=== PATIENT | female | born 1960 | race Caucasian/White ===

== ENCOUNTER 2016-05-21 11:38 | Inpatient (IN) ==
[2016-05-21] MEDS ORDERED: NS 1,000 ML IV ONE (11:59)
[2016-05-21] MEDS ORDERED: ZOFRAN IV ONE ×2 (11:59→20:08)
[2016-05-21 12:07] LABS: MANUAL DIFF NEEDED? NO
[2016-05-21 12:15] LABS: BASO% 0.8 % (0.0-0.8); EOS# 0.03 X1000 (0.0-0.7); EOS% 0.3 % (0.0-10.0); HEMATOCRIT 23.7 % (37.0-47.0); HEMOGLOBIN 7.7 g/dL (12.0-16.0); IMM GRAN# 0.02 X1000 (0.0-0.04); IMM GRAN% 0.2 % (0.0-0.5); LYMPH% 25.5 % (20.5-51.1); MCH 32.5 PG (27-31); MCHC 32.5 g/dL (33-37); MONO# 0.94 X1000 (0.11-0.59); MONO% 8.9 % (1.7-9.3); MPV 10.6 FL (7.4-10.4); NEUT% 64.3 % (42.2-75.2); PLT 340 X1000 (130-400); RBC 2.37 XMIL (4.2-5.4)
[2016-05-21 12:20] LABS: BILIRUBIN URINE NEGATIVE (NEGATIVE); BLOOD URINE NEGATIVE (NEGATIVE); CLARITY SL. CLOUDY (CLEAR); COLOR YELLOW; GLUCOSE URINE NEGATIVE (NEGATIVE); LEUKOCYTES URINE TRACE (NEGATIVE); NITRITE URINE NEGATIVE (NEGATIVE); PROTEIN URINE NEGATIVE (NEGATIVE); SP GRAVITY URINE 1.015; UROBILINOGEN URINE NORMAL
[2016-05-21 12:28] LABS: AMYLASE 34 U/L (20-200); LIPASE 24 U/L (13-60)
[2016-05-21 12:31] LABS: AGAP 17; ALBUMIN 3.4 g/dL (3.5-5.0); ALKALINE PHOSPHATASE 28 U/L (32-104); BUN 44 mg/dL (8-22); CALCIUM 8.5 mg/dL (8.8-10.2); CHLORIDE 103 mmol/L (98-107); COSMO 286; GOT 27 U/L (10-30); GPT 21 U/L (10-36); POTASSIUM 3.9 mmol/L (3.5-5.1); SODIUM 136 mmol/L (136-145); TCO2 17 mmol/L (25-35); TOTAL PROTEIN 5.4 g/dL (6.3-8.3)
[2016-05-21 12:33] LABS: URINE CULTURE PL NEEDED? YES; URINE EPITHELIAL CELLS >10 /HPF (<10); URINE SOURCE CLEAN CATCH
[2016-05-21] MEDS ORDERED: PROTONIX IV ONE (12:40)
[2016-05-21] MEDS ORDERED: SODIUM CHLORIDE 0.9% INJ ONE ×2 (12:40→21:30)
[2016-05-21 12:51] LABS: OCCULT BLOOD 1 POSITIVE (NEGATIVE)
--- NOTE | 2016-05-21 13:15 | PROVIDER DOCUMENTATION ---
This chart was entered by Fredrick Anne Scribe, acting as scribe for Nallely Castañeda PA. HPI-General Adult - General Chief Complaint: Nausea/Vomiting Stated Complaint: NAUSEA Time Seen by Provider: 05/21/16 11:58 Source: patient Allergies/Adverse Reactions: Patient Allergies Allergy/AdvReac Type Severity Reaction Status Date / Time codeine AdvReac HIVES Verified 05/21/16 11:50 Home Medications: Home Medication List Medication Instructions Recorded Confirmed Last Taken Type NK [No Home Medications] 05/21/16 05/21/16 Unknown History - History of Present Illness -Gen Adult Nature of Presenting Problems: Pt is a 56 yof that presents to er with cc of nausea and vomiting x 3 days. Associated dizziness and lightheaded upon standing. Went to [facility] was given 4mg IM Zofran sent to er was unable to draw blood. Recent travel to [place] last week No changes in bowel habits. Been taking Alkazeler with no relief. Denies abd pain,f,c. Quality of Pain: reports: none Severity: reports: moderate Onset/Duration: reports: 3 days ago Timing: reports: still present Similar Symptoms Previously?: No Recently seen or treated by another doctor?: No Review of Systems - Adult - REVIEW OF SYSTEMS - ADULT Constitutional: denies: chills, fever, fatique Eyes: reports: no symptoms reported Ears, Nose, Mouth & Throat: denies: ear pain, sinus problem, throat pain Cardiovascular: reports: no symptoms reported Respiratory: denies: cough, shortness of breath, wheezing Gastrointestinal: reports: nausea, vomiting. denies: abdominal pain, diarrhea, difficulty swallowing, frequent heartburn, poor appetite Genitourinary: denies: dysuria, discharge, frequent UTI's, hematuria Musculoskeletal: reports: no symptoms reported Integumentary: reports: no symptoms reported Neurological: reports: dizziness/vertigo. denies: headache/migraines, loss of balance, numbness, paresthesia Psychiatric: reports: no symptoms reported Endocrine: reports: no symptoms reported Hematologic/Lymphatic: reports: no symptoms reported Allergic/Immunologic: reports: no symptoms reported All Other Systems: Reviewed and Negative Past History - Adult - PAST MEDICAL HISTORY-ADULT Review of Records: reports: Nursing Assessment Review, Medications Reviewed Major Childhood Illnesses: reports: denies history - PRIOR SURGERIES/PROCEDURES Surgical/Procedure History: reports: BTL - IMMUNIZATION STATUS Childhood Immunizations: See Nurse Assessment Flu Vaccine: See Nurse Assessment - FAMILY HISTORY Family History: reviewed, not pertinent - SOCIAL HISTORY Smoking: denies Substance Use: none/never Physical Exam-General - PHYSICAL EXAM-ADULT Initial Vital Signs Reviewed: Yes - CONSTITUTIONAL General Appearance: alert, no apparent distress. negative: appears well - EYES Eyes: PERRL/EOMI - HEAD, EARS, NOSE, MOUTH & THROAT HENMT: moist mucous membranes, normal ENT inspection, TMs normal, pharynx normal - NECK Neck: non-tender, full range of motion, supple, normal inspection - RESPIRATORY Respiratory: chest non-tender, lungs clear, normal breath sounds, no pleuratic chest pain, no respiratory distress, no accessory muscle use - CARDIOVASCULAR Cardiovascular: tachycardia - GASTROINTESTINAL (ABDOMEN) Abdominal Exam: soft, no organomegaly, no pulsatile mass, tenderness (ttp epi) - MUSCULOSKELETAL Back Exam: normal inspection, no CVA tenderness, no vertebral tenderness Extremity: normal range of motion, non-tender - SKIN Integumentary: normal turgor, warm/dry, pallor - PSYCHIATRIC Psych/Mental Status: normal mood/affect, normal thought content, normal thought process, oriented x 3 Progress - PLAN OF CARE/RESULTS Progress/Plan/Lab Results: Vital Signs - 8 hr 05/21/16 11:44 05/21/16 12:10 Temperature 97.8 F Pulse Rate 124 H Pulse Rate [Sitting] 111 H Pulse Rate [Standing] 121 H Pulse Rate [Supine] 105 H Respiratory Rate 18 Blood Pressure 107/71 Blood Pressure [Sitting] 95/61 Blood Pressure [Standing] 94/54 Blood Pressure [Supine] 107/66 O2 Sat by Pulse Oximetry 100 Laboratory Results - last 24 hr 05/21/16 05/21/16 12:02 12:02 WBC 10.57 RBC 2.37 L Hgb 7.7 L Hct 23.7 L MCV 100.0 H MCH 32.5 H MCHC 32.5 L RDW Std Deviation 12.5 Plt Count 340 MPV 10.6 H Immature Gran % (Auto) 0.2 Neut % (Auto) 64.3 Lymph % (Auto) 25.5 Wake % (Auto) 8.9 Eos % (Auto) 0.3 Baso % (Auto) 0.8 Immature Gran # (Auto) 0.02 Neut # (Auto) 6.80 H Lymph # (Auto) 2.70 Wake # (Auto) 0.94 H Eos # (Auto) 0.03 Baso # (Auto) 0.08 Urine Color YELLOW Urine Clarity SL. CLOUDY A Urine pH 6.0 Ur Specific [place] 1.015 Urine Protein NEGATIVE Urine Ketones NEGATIVE Urine Blood NEGATIVE Urine Nitrite NEGATIVE Urine Bilirubin NEGATIVE Urine Urobilinogen NORMAL Urine WBC TRACE A Urine Glucose NEGATIVE Orders Category Date Time Status ED: Orthostatic Vital Signs (E as directed Care 05/21/16 11:51 Active AMYLASE [CHEM] Stat Lab 05/21/16 12:02 Received CBC WITH DIFF [HEME] Stat Lab 05/21/16 12:02 Completed COMPREHENSIVE METABOLIC PANEL [CHEM] Stat Lab 05/21/16 12:02 Received LIPASE [CHEM] Stat Lab 05/21/16 12:[address] W/POSS RFLX CULT [URINALYSIS] Stat Lab 05/21/16 12:02 Results 0.9% Sodium Chloride Inj [Ns] 1,000 ml Med 05/21/16 11:59 Active IV 999 mls/hr Ondansetron [Zofran] Med 05/21/16 11:59 Discontinued 4 mg IV NOW ONE Result Diagrams: 05/21/16 12:02 05/21/16 12:02 - CONSULTS/PCP/HOSPITALIST Notification #1 *Consult/PCP/Hospitalist*: Dr. Biggs, hospitalist Time Discussed: 13:52 Reason/Comments: GI bleed Consult Disposition: Admit (Will come evaluate and transfer to for GI consultation) Departure - Departure Time of Disposition Decision: 13:52 DIAGNOSIS: GI bleed Qualifiers: GI bleed type/associated pathology: unspecified gastrointestinal hemorrhage type Qualified Code(s): K92.2 - Gastrointestinal hemorrhage, unspecified Disposition: ADMITTED INPATIENT 09 Certified Medical Emergency: Emergent Condition: Stable Referrals and Follow-Ups: None,PCP [Primary Care Provider] - Attestation - Physician/ ELMER Attestation Patient care was provided by Advanced Practice Provider:: Yes Advanced Practice Provider:: Nallely Castañeda Advanced Practice Provider documentation review:: The Mid-level provider documentation, treatment plan and medical decision making was reviewed by the physician who agrees with all treatment and medical decision making by the MLP. This chart was documented by the indicated scribe, (Fredrick Anne, Whit) and accurately reflects the services I performed and decisions made by me, Nallely Castañeda PA, as attested by the provider's signature.
[2016-05-21] MEDS ORDERED: NS 1,000 ML ONE ×2 (14:28→17:47)
--- NOTE | 2016-05-21 17:13 | HISTORY AND PHYSICAL ---
PRIMARY CARE PHYSICIAN: She has no primary care physician. CHIEF COMPLAINT: Nausea, vomiting x3 days. HISTORY OF PRESENT ILLNESS: This is a 56-year-old, female, who denies any prior health history. She presented to the emergency room complaining of nausea, vomiting x3 days with associated dizziness and lightheadedness upon standing and walking. She went to [facility], was given Zofran IM. They were unable to draw labs. Therefore, she was sent to the emergency room for further evaluation. She does report travel to [facility] last week. She states she had no change in bowel habits. She did not eat foods that were not eaten by other people and no one in her group has become sick. She denied any diarrhea, any black or bloody vomitus or black or bloody stools. Orthostatic vital signs were obtained with a lying blood pressure of 107/66, and heart rate of 105. Standing 94/54 with a heart rate of 121. She was given a L of saline along with 4 of Zofran and Protonix. She is being admitted for further evaluation and treatment. PAST MEDICAL HISTORY: Denies. PAST SURGICAL HISTORY: Tubal ligation. SOCIAL HISTORY: She denies alcohol, tobacco, or illicit drug use. ALLERGIES: Codeine, which causes hives. HOME MEDICATIONS: None. REVIEW OF SYSTEMS: A 14 point review of systems is discussed with patient with pertinent positives stated in HPI. She denied chest pain, palpitations, syncope, black or bloody vomitus, black or bloody stools. Fever, chills, recent weight loss, weight gain, shortness of breath, cough. PHYSICAL EXAMINATION: GENERAL: This is a 56-year-old female who is sitting up in the bed with no distress. VITAL SIGNS: Blood pressure is 107/61, heart rate of 91, respirations are 18, temperature is 97.8 oral with room air saturations 100%. HEENT: Head is normocephalic, atraumatic. Pupils equal, round, react to light. EOMs are intact. Sclerae anicteric. Mucous membranes are dry. NECK: Supple with trachea midline. CARDIOVASCULAR: Regular rate and rhythm. S1, S2 appreciated. PULMONARY: Breath sounds are clear with no increased work of breathing noted. Chest does rise and fall symmetrically with respiration. GASTROINTESTINAL: Abdomen is soft with some epigastric tenderness, nondistended with bowel sounds in all 4 quadrants. MUSCULOSKELETAL: Good range of motion of joints. NEUROLOGIC: She is alert and oriented x3. EXTREMITIES: No clubbing, cyanosis, or edema. Calves are nontender. Pulses are palpable x4. DIAGNOSTICS: WBC is 10.5, with a hemoglobin of 7.7, hematocrit 23.7, and platelets of 340. Sodium is 136, potassium 3.9, BUN 44, creatinine 0.5 with a glucose of 157. Alkaline phosphatase is 28, AST 27, ALT 21 with amylase 34, lipase 24. She has stool for occult blood is positive. Urinalysis reveals 10-20 microscopic white blood cells and 1+ bacteria with greater than 10 epithelial cells. ASSESSMENT: 1. Gastrointestinal bleed. 2. Anemia. 3. Nausea, vomiting. 4. Dehydration. PLAN: The patient will be admitted to the hospital. We will continue with IV hydration with Zofran for nausea. We will continue with Protonix. She will remain n.p.o. at present. We will trend labs. Further treatments pending hospital course. Dictated by EZEQUIEL Quinn for Hardik Biggs MD cc: EZEQUIEL Quinn MD
[2016-05-21] MEDS: OFIRMEV 1000 MG/ISOTONIC SOLN 1,000 MG/100 ML BOTTLE IV SCH ×2 (17:25→23:13)
[2016-05-21] MEDS ORDERED: NS 1,000 ML IV SCH (17:39)
[2016-05-21] MEDS ORDERED: ZOFRAN ODT PO ONE (20:04)
[2016-05-21] MEDS ORDERED: ZOFRAN ODT ONE (20:06)
[2016-05-21] MEDS ORDERED: ZOFRAN ONE (20:09)
[2016-05-21] MEDS: ZOFRAN IV PRN (23:13)
[2016-05-21] MEDS: PROTONIX IV SCH (23:13)
[2016-05-21] MEDS: NS 1,000 ML IV SCH (23:14)
[2016-05-22] MEDS ORDERED: PHENERGAN IV ONE (02:50)
[2016-05-22] MEDS ORDERED: DEMEROL IV PRN (02:50)
[2016-05-22] MEDS ORDERED: SODIUM CHLORIDE 0.9% INJ ONE (02:50)
[2016-05-22] MEDS: OFIRMEV 1000 MG/ISOTONIC SOLN 1,000 MG/100 ML BOTTLE IV SCH ×4 (04:45→23:43)
[2016-05-22] MEDS: NS 1,000 ML IV SCH ×2 (04:45→14:22)
[2016-05-22] MEDS ORDERED: SODIUM CHLORIDE 0.9% 10 ML ONE ×2 (07:00→14:15)
[2016-05-22 07:49] LABS: AGAP 4; ALBUMIN 2.8 g/dL (3.5-5.0); ALKALINE PHOSPHATASE 22 U/L (32-104); BUN 20 mg/dL (8-22); CALCIUM 7.6 mg/dL (8.8-10.2); CHLORIDE 110 mmol/L (98-107); COSMO 289; GOT 19 U/L (10-30); GPT 16 U/L (10-36); POTASSIUM 3.5 mmol/L (3.5-5.1); SODIUM 144 mmol/L (136-145); TCO2 30 mmol/L (25-35); TOTAL BILIRUBIN 0.27 mg/dL (0.20-1.00); TOTAL PROTEIN 4.3 g/dL (6.3-8.3)
[2016-05-22] MEDS: PROTONIX IV SCH ×2 (09:47→20:42)
[2016-05-22] MEDS ORDERED: ZOFRAN IV PRN (11:58)
[2016-05-22] MEDS: DILAUDID IV PRN ×2 (12:22→20:03)
[2016-05-22] MEDS: ZOFRAN IV PRN (12:23)
[2016-05-22 12:39] LABS: HEMATOCRIT 17.4 % (37.0-47.0); HEMOGLOBIN 5.5 g/dL (12.0-16.0); MCH 31.8 PG (27-31); MCHC 31.6 g/dL (33-37); MCV 100.6 FL (81-99); MPV 9.6 FL (7.4-10.4); RBC 1.73 XMIL (4.2-5.4)
--- NOTE | 2016-05-22 12:46 | PROGRESS NOTE ---
DATE: 05/23/2015 SUBJECTIVE: Today, Ms. Soto refers to be doing relatively fine. Complained of headaches. I spent almost over an hour in her room. She had multiple complaints and wanted to change her room. She is mad that she was kept for almost 12 hours in [place] when we knew she needed to come here and, since she has been here, she has not seen any physician, and the complaints just goes on and on. She also says she is having some headaches which she thinks is because we her be fasting for 2 days without any food. She did also made it clear that if an EGD or nothing is done to find out the source of her bleed, she would leave AMA because she has a her daughter's prom to go tomorrow. OBJECTIVE: Vital Signs: Blood pressure is 100/46, pulse is 90, respiration is 18, temperature is 98.1 degrees. General: Ms Soto is a 56-year-old female. She was in bed and doesn't seems to be in any distress. Mucosa is pale and moist. Anicteric. Acyanotic. Neck is supple. Chest was clear. Cardiovascular: Regular rate and rhythm. Abdomen was soft and nontender. Extremities: No pedal edema. SQUILGEER: The patient was alert and oriented x4. LABORATORY DATA: There is no CBC today. Hemoglobin was 7.7 yesterday at [place] at 1202. Chemistry this morning is unremarkable. The patient is currently on 1. Pantoprazole 40 mg IV b.i.d. 2. Zofran. 3. Normal saline at 125. The patient's FOBT is positive. ASSESSMENT: 1. Symptomatic anemia, likely secondary to gastrointestinal bleed. 2. Nausea and vomiting. This has resolved. 3. Headaches, unclear etiology. The patient assumes that because she has been hungry, and she has been starving for the past 48 hours. 4. 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 Normally follows up in [place] with a neurologist over there. 5. Multiple social complaint. I think she is complaining about having been waiting for long. I tried my best to address each one of them and let her know that our priority is to first and foremost to make sure that she is safe and secondly to figure out what she has, and that Dr. Rubalcava has already been notified. Hopefully, we can get an EGD and colonoscopy done today. cc: Jose Bose MD [facility]ALTH SYSTEMTiff
[2016-05-22] MEDS ORDERED: MIRALAX PO ONE (17:47)
[2016-05-22] MEDS ORDERED: DULCOLAX PO ONE ×2 (17:47→22:00)
[2016-05-22] MEDS ORDERED: ULTRAM PO PRN (17:51)
--- NOTE | 2016-05-22 18:20 | CONSULTATION ---
DATE OF CONSULTATION: 05/22/2016 REFERRING PHYSICIAN: Dr. Jose Bose M.D. PRIMARY CARE PHYSICIAN: The patient was previously followed at [facility] but was referred to [facility] by [facility]. CHIEF COMPLAINT: 1. Nausea with vomiting for 3 days. 2. Hemoglobin of 5.5. 3. Heme-positive stools. HISTORY OF PRESENT ILLNESS: The patient is a 56-year-old, white female, who states that she has been relatively healthy. She recently returned from a vacation in [facility] in [place]. Approximately 3 days ago, she developed nausea with vomiting, lightheadedness and dizziness upon standing and walking. She attempted to schedule an appointment at [facility] but was unable to do so in the near future. She presented to [facility] where she was treated with IM Zofran. Because she was so dehydrated, they were unable to establish IV access. Because of her dehydration and her pale appearance, she was referred to [facility] for evaluation. She presented to [facility] where she was initially found to have a hemoglobin of 7.7 with hematocrit of 23.7. Overnight, she received IV fluids. Her stool was guaiac positive but we are unaware of the color. This morning, her hemoglobin dropped to 5.5 with a hematocrit of 17.4 after hydration. She denies hematemesis, melena, blood in her stool or blood on the tissue when she wipes. Her mother notes that the patient begin a vegetarian diet approximately 4-6 weeks ago because she was developing joint pain that she attributed to arthritis. Otherwise, she states that she has been relatively healthy. 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 She is receiving ongoing monitoring at [facility] in the Neurosurgery Clinic. PAST SURGICAL HISTORY: Tubal ligation. SOCIAL HISTORY: Negative for alcohol, tobacco or recreational drug use. MEDICATION ALLERGIES: Codeine. HOME MEDICATIONS: None. REVIEW OF SYSTEMS: Remarkable for nausea with resolution of the vomiting since admission. She notes a vague epigastric discomfort. She has never had a screening colonoscopy. FAMILY HISTORY: Remarkable for prostate cancer in the maternal grandfather. There is a strong history of coronary artery disease. There is no family history of colon cancer , esophageal cancer, gastric cancer or throat cancer. On exam, this is a white female in no acute distress. Her blood pressure is 104 /46, pulse of 86, respiration 18, temperature of 98.9 degrees.HEENT: Remarkable in that her sclerae are anicteric. Her conjunctivae are pale. Oropharyngeal mucosa membranes are moist. Pulmonary : Lungs are clear to auscultation with normal expiratory effort. Cardiovascular Examination: Reveals regular rate and rhythm with no gallops, murmurs, or rubs. Abdominal Exam: Reveals normoactive bowel sounds. The abdomen is soft with mild epigastric tenderness on deep palpation. There is no rebound or guarding. Rectal exam: Was deferred as she has guaiac-positive stools. Extremities: Bilaterally are negative for cyanosis, clubbing, or edema. OBJECTIVE DATA: Her hemoglobin is 5.5 with hematocrit of 17.4 and a white count of 4.66. She has 267,000 platelets. Sodium is 144, potassium 3.5, chloride 110, CO2 of 30, BUN 20, with a creatinine 0.5. Glucose is 90. Calcium is 7.6, total bilirubin 0.27, AST 19, ALT 16, alkaline phosphatase 22, total protein 4.3, and albumin of 2.8. IMPRESSION: 1. Severe anemia. 2. Heme-positive stools. 3. Nausea with vomiting. 4. Protein calorie malnutrition. RECOMMENDATION: 1. To further evaluate the patient's anemia, nausea with vomiting and epigastric pain, I will plan to perform an EGD in the morning after she has received blood transfusion and has been fully resuscitated. 2. The patient has an unexplained protein calorie malnutrition. Therefore, I recommend that she also undergo a colonoscopy in the morning for further evaluation and to rule out a malignancy. 3. Please transfuse as you are doing. She will need careful monitoring of her hemoglobin and hematocrit overnight. She is currently scheduled to receive 2 units of blood. She may require an additional amount. 4. Continue Protonix 40 mg IV q.12 hours as you are doing. 5. The patient reports a headache on review of systems. I will add Ultram that may be given now and q.6 hours as needed. She is somewhat concerned about taking either Dilaudid or morphine as she does not routinely take pain medications. 6. I will instruct the nurses that she may have 1 or the other but not all of the above pain medication. It is will be important to avoid over-sedation. She has agreed to sign the consent prior to receiving any sedation. Consent was discussed and questions answered. 7. Additional recommendations to follow based on her clinical course and review of her endoscopic findings. cc: MD Jose Craft MD MTDD
[2016-05-23] MEDS: NS 1,000 ML IV SCH ×2 (02:27→12:36)
[2016-05-23 02:32] LABS: MANUAL DIFF NEEDED? NO
[2016-05-23 02:40] LABS: BASO% 0.5 % (0.0-0.8); EOS# 0.12 X1000 (0.0-0.7); HEMOGLOBIN 7.9 g/dL (12.0-16.0); LYMPH# 2.06 X1000 (1.2-3.4); LYMPH% 34.6 % (20.5-51.1); MCH 31.5 PG (27-31); MCHC 32.9 g/dL (33-37); MCV 95.6 FL (81-99); MONO# 0.72 X1000 (0.11-0.59); MONO% 12.1 % (1.7-9.3); MPV 9.5 FL (7.4-10.4); NEUT% 50.8 % (42.2-75.2); PLT 236 X1000 (130-400); RBC 2.51 XMIL (4.2-5.4)
[2016-05-23] MEDS ORDERED: FLEET ENEMA PR ONE (06:24)
[2016-05-23 07:32] LABS: MANUAL DIFF NEEDED? NO
[2016-05-23] MEDS ORDERED: EPINEPHRINE SYRINGE ONE (07:43)
[2016-05-23 07:58] LABS: BASO% 0.6 % (0.0-0.8); EOS# 0.13 X1000 (0.0-0.7); EOS% 2.1 % (0.0-10.0); HEMATOCRIT 30.9 % (37.0-47.0); HEMOGLOBIN 10.4 g/dL (12.0-16.0); IMM GRAN# 0.02 X1000 (0.0-0.04); IMM GRAN% 0.3 % (0.0-0.5); LYMPH# 2.13 X1000 (1.2-3.4); LYMPH% 33.8 % (20.5-51.1); MCH 30.9 PG (27-31); MCHC 33.7 g/dL (33-37); MCV 91.7 FL (81-99); MONO# 0.71 X1000 (0.11-0.59); MONO% 11.3 % (1.7-9.3); MPV 10.2 FL (7.4-10.4); NEUT% 51.9 % (42.2-75.2); PLT 277 X1000 (130-400); RBC 3.37 XMIL (4.2-5.4)
[2016-05-23 08:07] LABS: AGAP 13; ALBUMIN 3.7 g/dL (3.5-5.0); ALKALINE PHOSPHATASE 30 U/L (32-104); BUN 7 mg/dL (8-22); CALCIUM 8.5 mg/dL (8.8-10.2); CHLORIDE 101 mmol/L (98-107); COSMO 272; GOT 30 U/L (10-30); GPT 24 U/L (10-36); POTASSIUM 3.6 mmol/L (3.5-5.1); SODIUM 137 mmol/L (136-145); TCO2 23 mmol/L (25-35); TOTAL BILIRUBIN 0.71 mg/dL (0.20-1.00); TOTAL PROTEIN 5.8 g/dL (6.3-8.3)
[2016-05-23] MEDS ORDERED: PRILOSEC PO SCH (10:10)
[2016-05-23] MEDS ORDERED: CARAFATE LIQUID PO SCH (10:10)
[2016-05-23] MEDS ORDERED: FENTANYL ONE (10:26)
[2016-05-23] MEDS ORDERED: DIPRIVAN 1% 500 MG/50 ML BOTTLE ONE (10:27)
[2016-05-23] MEDS ORDERED: VERSED ONE (10:27)
--- NOTE | 2016-05-23 11:55 | PROGRESS NOTE ---
DATE: 05/23/2016 SUBJECTIVE: Today, Ms. Soto refers to be doing a whole lot better. She actually seems like a different person. She is more polite, more delightful, seems happier, and was full of smiles today. She actually apologized for her attitude yesterday. She just came from the EGD and colonoscopy. She denies any orthostatic symptoms. She denies any vomiting. No melena. OBJECTIVE: Vital Signs: Blood pressure is 112/62, pulse is 74, respirations 20, temperature 97.9 degrees. General: Ms Soto is a 56-year-old female. She is in bed, does not seems to be in any distress. Mucosa is pink and moist. Anicteric. Acyanotic. Neck is supple. Chest was clear. Cardiovascular: Regular rate and rhythm. Abdomen is soft, nontender. Extremities: No pedal edema. LABORATORY DATA: WBC is 6.31, hemoglobin is 10.4, platelet count of 277,000. Chemistries reviewed and completely unremarkable. We are still pending the official report on the EGD. My understanding is that she had 3 gastric ulcers, some duodenitis, and some polyps on the colonoscopy. ASSESSMENT: 1. Symptomatic anemia due to gastrointestinal bleed. 2. Gastrointestinal bleed due to peptic ulcer disease. 3. History of nonsteroidal anti-inflammatory drugs, chronic use. 4. History of brain stem tumor. On strict observation from a neurologist in [place]. 5. Headaches, resolved. In general, Ms. Soto seems to be doing a whole lot better. She got 3 PRBC transfused. Hemoglobin and hematocrit has remarkably improved. She has just done her studies. Dr. Rubalcava plans to keep her on b.i.d. Protonix and Carafate, and she will follow her up in her clinic. There is a CBC for this afternoon. If that comes back to be normal or stable, we will be able to discharge her, and she will follow up with Dr. Rubalcava. cc: Jose Bose MD
[2016-05-23 12:01] VITALS: BP 133/50
[2016-05-23] MEDS: OFIRMEV 1000 MG/ISOTONIC SOLN 1,000 MG/100 ML BOTTLE IV SCH (12:36)
[2016-05-23 12:39] LABS: HEMOGLOBIN 10.7 g/dL (12.0-16.0); MCH 31.3 PG (27-31); MCHC 33.4 g/dL (33-37); MCV 93.6 FL (81-99); MPV 10.1 FL (7.4-10.4); RBC 3.42 XMIL (4.2-5.4)
--- NOTE | 2016-05-23 16:12 | OPERATIVE NOTE ---
DATE OF PROCEDURE: 05/23/2016. REFERRING PHYSICIAN: Jose Bose M.D. INDICATIONS FOR CONSULTATION: 1. Hemoglobin of 5.5. 2. Protein calorie malnutrition. 3. Constipation. PROCEDURE PERFORMED: 1. Colonoscopy with polypectomy. 2. Colonoscopy with biopsy. CONSENT: Informed consent was obtained from the patient prior to the procedure. The risks, benefits, and alternatives were discussed with the patient and her mother. PERFORMING PHYSICIAN: Hedy Rubalcava M.D. ASSISTANTS: 1. [facility] 2. Malia Coto RN. 3. Shelbie Ribeiro CRNA. 4. Tray Wang M.D. (anesthesia). CECAL INTUBATION TIME: 9 minutes. WITHDRAWAL TIME: 6 minutes. PREP QUALITY: Fair to poor. COMPLICATIONS: There were no complications. ESTIMATED BLOOD LOSS: Less than 1-2 mL. SPECIMENS REMOVED: 1. In jar #3, there were random colon biopsies. 2. In jar #4, there was a rectal polyp biopsy. FINDINGS: After the EGD was performed, the patient was repositioned. Upon insertion of the scope into the rectum, there was staining of the mucosa consistent with melanosis coli. The dark pigmented changes persisted throughout the entire colon. There was mild pigmentation in the terminal ileum. The mucosa appeared grossly normal in the terminal ileum, ileocecal valve, and appendiceal orifice. Upon withdrawing of the scope, there was diverticulosis in the descending, sigmoid and rectosigmoid colon. In the upper rectum, there were grade 2 internal hemorrhoids. In the mid rectum, there was a 5-10 mm sessile polyp that was removed by snare cautery, cold biopsy followed by ablation of the polyp tissue at the base. On retroflexed view, there were medium external hemorrhoids. After the exam was complete, the lumen was decompressed and the scope was removed without incident. IMPRESSION: 1. 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 2. Left-sided diverticulosis. 3. Grade 2 internal hemorrhoids. 4. Rectal polyp. 5. External hemorrhoids. RECOMMENDATION: 1. Await biopsy results. 2. Avoid colon cleanse. Postprocedure, the patient states that she uses colon cleansing and frequent herbal laxatives for constipation. 3. She was encouraged to begin MiraLAX 17 g p.o. b.i.d. 4. We will schedule the patient for repeat colonoscopy in 5 years pending biopsy results. 5. We will have the patient return to clinic in 4 weeks to assess interval progress. 6. She is hemodynamically stable. I will repeat a CBC at 12 noon today. If that is unchanged, it would be reasonable to pursue outpatient management. cc: MD Jose Craft MD MTDD
--- NOTE | 2016-05-23 16:40 | OPERATIVE NOTE ---
PROCEDURE DATE: 05/23/2016 REFERRING PHYSICIAN: Jose Bose M.D. PRIMARY CARE PHYSICIAN: [facility]. INDICATION FOR PROCEDURE: 1. Hemoglobin of 5.5. 2. Unexplained protein calorie malnutrition. PROCEDURE PERFORMED: Esophagogastroduodenoscopy with biopsy. CONSENT: Informed consent was obtained from the patient prior to the procedure. The risks, benefits, and alternatives were discussed. MEDICATION: The patient received monitored anesthesia care. PERFORMING PHYSICIAN: Hedy Rubalcava M.D. ASSISTANTS: 1. [facility] 2. Mlaia Coto RN. 3. Shelbie Ribeiro CRNA. 4. Tray Wang M.D. (anesthesia). COMPLICATIONS: There were no complications. ESTIMATED BLOOD LOSS: Less than 2 mL. SPECIMENS REMOVED: 1. In jar #1, duodenal biopsies. 2. In jar #2 there were gastric biopsies. FINDINGS: After sedation was achieved, the upper endoscope was inserted to the 2nd portion of the duodenum. The hypopharynx appeared normal. The tubular esophagus appeared normal. The GE junction was at 35 cm from the incisors. There was a hiatal hernia from 35-40 cm. In the gastric lumen, there was hemorrhagic gastritis with old blood in the gastric lumen but no active bleeding. There were scattered deep erosions throughout the antrum, fundus and body. In the antrum, there were 3 stellate ulcers that ranged in size from 10-15 mm. All 3 ulcers had whitish bases with erythematous edges but no stigmata of bleeding. Biopsies were taken. In the antrum, there was gastric wall edema at the level of the ulcers reducing the pyloric lumen by approximately 50%. We were able to traverse the lumen with the scope without difficulty. There was duodenitis in the duodenal bulb which was biopsied. The second and third portion of the duodenum appeared endoscopically normal. After the exam was complete the lumen was decompressed and the scope was removed without incident. IMPRESSION: 1. Hiatal hernia. 2. Severe hemorrhagic gastritis. 3. Three antral ulcers. 4. Pyloric narrowing due to gastric wall edema. 5. Duodenitis. RECOMMENDATION: 1. Await biopsy results. 2. Check stool antigen for H. pylori infection. If she is unable to defecate prior to discharge, I will check an H pylori breath test in the office. 3. Begin Prilosec 40 mg p.o. b.i.d. for 6 weeks then reduce to once daily. 4. Begin Carafate 1 g 4 times a day for 12 weeks then stop. 5. If she develops nausea with vomiting, check an UGI to assess for outlet obstruction. 6. Will proceed with colonoscopy as previously scheduled. cc: Jose Bose MD MTDD
[2016-05-23] MEDS ORDERED: CARAFATE PO SCH (17:00)
--- NOTE | 2016-05-23 17:58 | DISCHARGE SUMMARY ---
ADMISSION DATE: 05/21/2016 DISCHARGE DATE: 05/23/2016 DISPOSITION: Is home. FOLLOWUP: 1. With Dr. Rubalcava. 2. Patient's PCP. CONSULTATION DURING THIS ADMISSION: GI was consulted. Patient was seen by Dr. Rubalcava. INVASIVE PROCEDURE DONE DURING THIS ADMISSION: EGD and colonoscopy was done by Dr. Rubalcava. We are still pending the official report at the time of discharge. ADMISSION DIAGNOSES: 1. Gastrointestinal bleed. 2. Anemia. 3. Nausea and vomiting. 4. Dehydration. DISCHARGE DIAGNOSES: 1. Symptomatic anemia due to GI bleed. 2. GI bleed due to gastric peptic ulcer disease. 3. History of NSAID abuse. 4. History of brain stem tumor. Patient follows up with a neurologist in [place]. 5. Headaches resolved. DISCHARGE MEDICATIONS: 1. Omeprazole 40 mg b.i.d. 2. Sucralfate 1 g p.o. 4 times daily. PRESENTING COMPLAINT: Nausea and vomiting for 3 days. HISTORY OF PRESENTING COMPLAINT: Ms. Soto is a 56-year-old female, with a history of a brain stem tumor who takes Motrin on a regular basis because of arthritis as well. She presented to the emergency department because of dizziness and lightheadedness upon standing up. Was evaluated in the emergency department and found to have a hemoglobin level of 7.7 and stool which was positive for blood. The patient was transferred from [facility] to [facility] for medical care. HOSPITAL COURSE: The patient's hemoglobin and hematocrit dropped to about 5.5. She was transfused 3 PRBC. Consult was placed for GI and EGD and colonoscopy was done today from Dr. Rubalcava. There were 3 peptic ulcers in the stomach and some duodenal inflammation. On the colonoscopy there was some diverticulosis and some polyps but she thinks the stomach ulcers were the cause of her GI bleed and with subsequent hemoglobin this morning after the procedure is 10.7, and Dr. Rubalcava thinks that she will be okay to go. Ms. Soto will therefore be discharged. She is in a very stable condition. Blood pressure at the time of discharge is 113/50 with a pulse of 74, respirations 16, temperature is 97.6 degrees. Her physical exam is completely unremarkable. Please refer to the details of my physical exam today. Ms. oSto is advised to follow up with Dr. Rubalcava and she is advised to stay away from NSAIDs including ibuprofen, Motrin, naproxen. She is had advised to take Tylenol or Celebrex if she needs anything for pain control. All the discharge instructions have been discussed with her and she voices understanding. Time spent for discharge was 36 minutes. cc: Jose Bose MD MTDD
[2016-05-25] MEDS ORDERED: XYLOCAINE-MPF 2% ONE (09:13)
[2016-05-25] MEDS ORDERED: ZOFRAN ONE (09:13)
[2016-05-25] MEDS ORDERED: EXTENSION SET 32 IN 4522 ONE (09:13)
[2016-05-25] MEDS ORDERED: ANESTHESIA PB SET 88 IN 5742 ONE (09:13)
== END 2016-05-23 14:36 | disposition home or self-care (01) ==
LOC: P.ED 11:38 → SUATTDRO 17:11 → P.EDIPHOLD 17:11 → 3N 21:18
PROVIDERS: ATTEND Internal Medicine
PROC: EN.HEAT (2016-05-23 08:00)